=== PATIENT | male | born 1950 | race American Indian/Alaskan Native ===

== ENCOUNTER 2021-11-29 23:32 | Emergency (ER) | payer MEDICAID ==
[2021-11-29 23:42] VITALS: BP 165/100
[2021-11-30] MEDS ORDERED: KETOROLAC 30 MG/1 ML INJ IM STA (03:15)
[2021-11-30] MEDS ORDERED: oxyCODONE /ACETAMINOPHEN 5-325MG TAB PO ONE (03:15)
--- NOTE | 2021-11-30 03:15 | Emergency Department Report ---
ED General Adult HPI - General Chief complaint: Abdominal Pain Stated complaint: FLANK PAIN PUI?: No Time Seen by Provider: 11/30/21 03:05 Source: patient, RN notes reviewed, old records reviewed Mode of arrival: Ambulatory Limitations: No Limitations - History of Present Illness Initial comments: The patient is a 71-year-old gentleman who presents to the ER today with a chief complaint of "my doctor sent me here to get a CAT scan." The patient reports that his urologist, Dr. Audi Moran instructed the patient to present to the emergency room, for a CT scan of the abdomen pelvis. Patient complains of left buttock pain that radiates down his left lower extremity, and left paralumbar back pain. The patient denies testicular pain, and urinary symptoms. The patient denies headache, neck pain, chest pain, abdominal pain and shortness of breath. He is urinating and defecating. He takes Percocet for chronic pain, and ambulates at home with a cane. No extremity weakness. -: days(s) Location: back, left, upper extremity Radiation: extremity Quality: burning, aching Consistency: constant Improves with: none Worsens with: movement Associated Symptoms: denies other symptoms - Related Data Home Medications Medication Instructions Recorded Confirmed Last Taken Famotidine 40 mg PO DAILY 01/21/14 01/28/14 01/25/14 40 MG Loratadine (Nf) [Claritin (Nf)] 10 mg PO DAILY 01/21/14 01/28/14 01/14/14 Metoprolol [Lopressor TAB] 25 mg PO DAILY 01/21/14 01/28/14 01/27/14 25 mg lisinopriL [Zestril TAB] 1 tab PO DAILY 01/21/14 01/28/14 01/26/14 1 tab Previous Rx's Medication Instructions Recorded Last Taken Type Benzonatate [Tessalon Perles] 100 mg PO Q8HR #30 capsule 01/11/15 Unknown Rx Fluticasone [Flonase] 1 spray NS QDAY #1 bottle 01/11/15 Unknown Rx Glycerin/Propylene Glycol 15 ml OP 5XD #1 drops 01/11/15 Unknown Rx [Artificial Tears Drops] Ibuprofen [Motrin 600 MG tab] 600 mg PO Q8H PRN #30 tablet 01/11/15 Unknown Rx Naphazoline HCl/Pheniramine [Eye 1 - 2 drop OP TID #1 drops 01/11/15 Unknown Rx Allergy Relief Drops 0.025/0.3%] Acetaminophen [Non-Aspirin Extra 500 mg PO Q6HR PRN #30 tablet 11/30/21 Unknown Rx Strength] Ibuprofen [Motrin] 600 mg PO Q8H PRN #30 tablet 11/30/21 Unknown Rx Allergies Allergy/AdvReac Type Severity Reaction Status Date / Time Sulfa (Sulfonamide Allergy Rash Verified 11/29/21 23:43 Antibiotics) ED Review of Systems ROS: Stated complaint: FLANK PAIN Other details as noted in HPI Comment: All other systems reviewed and negative Musculoskeletal: back pain Neurological: paresthesias ED Past Medical Hx - Past Medical History Hx Hypertension: Yes (2011 patient reports that does not take meds) Hx Heart Attack/AMI: Yes Hx GERD: Yes (GERD) Hx Liver Disease: No Hx Renal Disease: Yes (kidney stones) Hx Sickle Cell Disease: No - Surgical History Additional Surgical History: Lumbar Fusion - Social History Smoking Status: Current Some Day Smoker Substance Use Type: None - Medications Home Medications: Home Medications Medication Instructions Recorded Confirmed Last Taken Type Famotidine 40 mg PO DAILY 01/21/14 01/28/14 01/25/14 History 40 MG Loratadine (Nf) [Claritin (Nf)] 10 mg PO DAILY 01/21/14 01/28/14 01/14/14 History Metoprolol [Lopressor TAB] 25 mg PO DAILY 01/21/14 01/28/14 01/27/14 History 25 mg lisinopriL [Zestril TAB] 1 tab PO DAILY 01/21/14 01/28/14 01/26/14 History 1 tab Benzonatate [Tessalon Perles] 100 mg PO Q8HR #30 capsule 01/11/15 Unknown Rx Fluticasone [Flonase] 1 spray NS QDAY #1 bottle 01/11/15 Unknown Rx Glycerin/Propylene Glycol 15 ml OP 5XD #1 drops 01/11/15 Unknown Rx [Artificial Tears Drops] Ibuprofen [Motrin 600 MG tab] 600 mg PO Q8H PRN #30 tablet 01/11/15 Unknown Rx Naphazoline HCl/Pheniramine [Eye 1 - 2 drop OP TID #1 drops 01/11/15 Unknown Rx Allergy Relief Drops 0.025/0.3%] Acetaminophen [Non-Aspirin Extra 500 mg PO Q6HR PRN #30 tablet 11/30/21 Unknown Rx Strength] Ibuprofen [Motrin] 600 mg PO Q8H PRN #30 tablet 11/30/21 Unknown Rx ED Physical Exam - General Limitations: No Limitations General appearance: alert, in no apparent distress - Head Head exam: Present: atraumatic, normocephalic - Eye Eye exam: Present: normal appearance, EOMI. Absent: nystagmus - ENT ENT exam: Present: normal exam, normal orophraynx, mucous membranes moist, normal external ear exam - Neck Neck exam: Present: normal inspection, full ROM. Absent: tenderness, meningismus - Respiratory Respiratory exam: Present: normal lung sounds bilaterally. Absent: respiratory distress, wheezes, rales, rhonchi, stridor, decreased breath sounds - Cardiovascular Cardiovascular Exam: Present: regular rate, normal rhythm, normal heart sounds. Absent: bradycardia, tachycardia, irregular rhythm, systolic murmur, diastolic murmur, rubs, gallop - GI/Abdominal GI/Abdominal exam: Present: soft. Absent: distended, tenderness, guarding, rebound, rigid, pulsatile mass - Rectal Rectal exam: Present: deferred - Extremities Exam Extremities exam: Present: normal inspection, full ROM, other (2+ pulses noted in the bilateral upper and lower extremities. There is no palpable cord. negative Homans sign. Muscular compartments are soft. The pelvis is stable.). Absent: pedal edema, calf tenderness - Back Exam Back exam: Present: normal inspection, paraspinal tenderness, other (There is a positive left straight leg raise). Absent: tenderness, CVA tenderness (R) - Neurological Exam Neurological exam: Present: alert, oriented X3, normal gait, reflexes normal, other (No facial droop. Tongue midline. Extraocular movements intact bilaterally. Facial sensation intact to light touch in V1, V2, V3 distribution bilaterally. 5 and a 5 strength in 4 extremities. Sensation intact to light touch in 4 extremities.). Absent: motor sensory deficit - Psychiatric Psychiatric exam: Present: normal affect, normal mood - Skin Skin exam: Present: warm, dry, intact, normal color. Absent: rash ED Course Vital Signs 11/29/21 23:41 Temperature 98.0 F Pulse Rate 81 Respiratory 18 Rate Blood Pressure 165/100 O2 Sat by Pulse 97 Oximetry - Reevaluation(s) Reevaluation #1: 11/30/21 04:38 Differential diagnosis, include but not limited to: Renal colic, AAA, UTI, lumba r radiculopathy Assessment and plan: 71-year-old gentleman with probable lumbar radiculopathy. Ambulatory with a steady gait, neurovascularly intact, abdomen soft and benign, without pulsatile abdominal mass. Patient medicated with multiple interventions here in the emergency room, still having some discomfort. Suspect natural history of lumbar radiculopathy. However, as he endorses that his urologist sent him here for CT scan of the abdomen pelvis, we will obtain CT scan of the abdomen pelvis, as well as urinalysis. Reassess after scans and UA have resulted. 11/30/21 05:[address] scan abdomen pelvis shows L-spine stenosis, with no emergent findings. Patient ambulatory with a steady gait. Instructed to follow-up with local spine surgery for presumed lumbar radiculopathy. Return precautions reviewed. All questions answered. Reevaluation #2: 11/30/21 05:48 Appropriate strength and sensation in the bilateral upper and lower extremities, with downgoing plantar reflexes, and appropriate reflexes. No clinical indication of cord compression at this time. ED Medical Decision Making - Lab Data Vital Signs 11/29/21 23:41 Temperature 98.0 F Pulse Rate 81 Respiratory 18 Rate Blood Pressure 165/100 O2 Sat by Pulse 97 Oximetry - EKG Data -: EKG Interpreted by Id EKG shows normal: sinus rhythm Rate: normal - EKG Data 11/30/21 04:38 The EKG is interpreted at 23: 47 Sinus rhythm, 69 bpm. Left axis deviation, left anterior fascicular block, left ventricular hypertrophy, nonspecific T wave abnormalities. Abnormal EKG. Not a STEMI. - Radiology Data Radiology results: report reviewed, image reviewed CT ABDOMEN AND PELVIS WITHOUT CONTRAST INDICATION / CLINICAL INFORMATION: LEFT flank pain / LEFT radicular symptoms. TECHNIQUE: Axial CT images were obtained through the abdomen and pelvis without IV contrast. All CT scans at this location are performed using CT dose reduction for ALARA by means of automated exposure control. COMPARISON: None available. FINDINGS: LOWER CHEST: No significant abnormality of the imaged chest. LIVER: No significant abnormality. GALLBLADDER: No significant abnormality. BILE DUCTS: No significant abnormality. SPLEEN: No significant abnormality. PANCREAS: The pancreatic duct appears diffusely enlarged. No obvious mass. No obvious obstructing lesion. ADRENALS: No significant abnormality. RIGHT KIDNEY / URETER: Multiple punctate calcifications compatible with nephrolith. No hydronephrosis. No distinct ureterolithiasis. LEFT KIDNEY / URETER: Polycystic left kidney. STOMACH / DUODENUM / SMALL BOWEL: Small hiatal hernia. Stomach and small bowel demonstrate no acute findings. COLON: Diverticulosis without acute inflammation. APPENDIX: Normal PERITONEUM: No free air or free fluid are present within the abdomen or pelvis. LYMPH NODES: No significant adenopathy. AORTA / ARTERIES: Mild atherosclerotic calcification without acute abnormality. IVC / VEINS: No significant abnormality. URINARY BLADDER: No significant abnormality. REPRODUCTIVE ORGANS: No significant abnormality. ADDITIONAL ABDOMINAL/PELVIC FINDINGS: None. SKELETAL SYSTEM: Congenitally shortened pedicles. Moderate to severe central stenosis L4-5. Moderate severe central stenosis at L3-4. Neuroforamina are visualized. IMPRESSION: 1. Moderate to severe central stenosis at L3-4 and L4-5. The neuroforamina are well visualized. Outpatient nonemergent MRI may be useful for further characterization. 2. Other nonacute findings as detailed. Signer Name: Grant Pardo II, MD Signed: 11/30/2021 4:40 AM Workstation Name: [id number] Critical care attestation.: If time is entered above; I have spent that time in minutes in the direct care of this critically ill patient, excluding procedure time. ED Disposition Clinical Impression: Radicular pain of left lower extremity, Lower back pain Disposition: HOME / SELF CARE / HOMELESS Is pt being admited?: No Does the pt Need Aspirin: No Condition: Good Instructions: Back Exercises, [id number], Lumbosacral Radiculopathy Additional Instructions: Patient likely has a pinched nerve in the lumbar spine, likely causing lumbar radiculopathy. Patient is advised to follow-up with a primary care doctor or spine surgeon within the next 2 weeks. Alternate ice packs and heat packs as needed for physical pain. Start physical therapy to improve pain, range of motion. Take the pain medications as needed and directed. May participate in acupuncture, massage/complementary therapy. Please return to the emergency room right away with new pain, worsened pain, migration of pain, projectile vomiting, change in mental status, confusion, inability tolerate liquid feeds, new, worsened or different symptoms not present on the initial emergency room evaluation Referrals: [facility] [Provider Group] - 3-5 Days BRENNA GARNICA MD [Staff Physician] - 3-5 Days
[2021-11-30] MEDS ORDERED: MORPHINE 4 MG/1 ML INJ IM STA (04:27)
[2021-11-30 05:14] LABS: Bilirubin,Urine NEG (Negative); Blood,Urine NEG (Negative); Color,Urine Yellow (Yellow); Protein,Urine <15 mg/dL mg/dL (Negative); Urobilinogen,Urine < 2.0 mg/dL (<2.0)
[2021-11-30 05:26] LABS: RBC,Urine < 1.0 /HPF (0.0-6.0); WBC,Urine < 1.0 /HPF (0.0-6.0)
--- NOTE | 2021-11-30 05:44 | Cat Scan Report ---
CT ABDOMEN AND PELVIS WITHOUT CONTRAST INDICATION / CLINICAL INFORMATION: LEFT flank pain / LEFT radicular symptoms. TECHNIQUE: Axial CT images were obtained through the abdomen and pelvis without IV contrast. All CT scans at this location are performed using CT dose reduction for ALARA by means of automated exposure control. COMPARISON: None available. FINDINGS: LOWER CHEST: No significant abnormality of the imaged chest. LIVER: No significant abnormality. GALLBLADDER: No significant abnormality. BILE DUCTS: No significant abnormality. SPLEEN: No significant abnormality. PANCREAS: The pancreatic duct appears diffusely enlarged. No obvious mass. No obvious obstructing les ion. ADRENALS: No significant abnormality. RIGHT KIDNEY / URETER: Multiple punctate calcifications compatible with nephrolith. No hydronephrosis . No distinct ureterolithiasis. LEFT KIDNEY / URETER: Polycystic left kidney. STOMACH / DUODENUM / SMALL BOWEL: Small hiatal hernia. Stomach and small bowel demonstrate no acute f indings. COLON: Diverticulosis without acute inflammation. APPENDIX: Normal PERITONEUM: No free air or free fluid are present within the abdomen or pelvis. LYMPH NODES: No significant adenopathy. AORTA / ARTERIES: Mild atherosclerotic calcification without acute abnormality. IVC / VEINS: No significant abnormality. URINARY BLADDER: No significant abnormality. REPRODUCTIVE ORGANS: No significant abnormality. ADDITIONAL ABDOMINAL/PELVIC FINDINGS: None. SKELETAL SYSTEM: Congenitally shortened pedicles. Moderate to severe central stenosis L4-5. Moderate severe central stenosis at L3-4. Neuroforamina are visualized. IMPRESSION: 1. Moderate to severe central stenosis at L3-4 and L4-5. The neuroforamina are well visualized. Outpa tient nonemergent MRI may be useful for further characterization. 2. Other nonacute findings as detailed. Signer Name: Garnt Pardo II, MD Signed: 11/30/2021 5:40 AM Workstation Name: [id number]
--- NOTE | 2021-11-30 11:02 | Electrocardiograph Report ---
[facility] Test Date: 2021-11-29 Test Time: 23:47:07 Pat Name: MARY ANN STARKEY Department: Room: Gender: M Engineering Equipment Operator: TECH : 1950 Requested By: VERÓNICA DUNN Order Number: [id number] Reading MD: Gerry Holland Measurements Intervals [place] Rate: 69 P: 51 [place]: 188 QRS: -2 QRSD: 84 T: -57 QT: 397 QTc: 425 Interpretive Statements Sinus rhythm Abnormal T, consider ischemia, diffuse leads No previous ECG available for comparison Electronically Signed On 11-30-2021 11:01:58 EDT by Gerry Holland
== END 2021-11-30 06:03 | disposition home or self-care (01) ==
LOC: ED 23:32
DX: M54.16 Radiculopathy, lumbar region (principal); M54.50 Low back pain, unspecified; F17.200 Nicotine dependence, unspecified, uncomplicated; Z88.2 Allergy status to sulfonamides; I10 Essential (primary) hypertension
CPT/HCPCS: 74176; 81001; 93005; 96372; 99284; J1885; J2270